=== PATIENT | male | born 1950 | race Caucasian/White ===

== ENCOUNTER 2025-08-12 16:32 | Emergency (ER) | payer MEDICARE ==
[~2025-08-12] VITALS: Ht 182.9 cm; Wt 97.2 kg
[2025-08-12 16:47] LABS: BASOPHILS 1.0 % (0.2-1.2); EOSINOPHILS 5.6 % (0.8-7.0); LYMPHOCYTES 24.2 % (21.8-53.1); MCH 29.1 PG (25.7-32.2); MCHC 34.4 g/dL (32.3-36.5); MCV 84.6 fL (79.0-92.2); MONOCYTES 8.2 % (5.3-12.2); NEUTROPHILS 60.5 % (34.0-67.9); RBC 4.81 M/uL (4.63-6.08)
[2025-08-12 16:58] LABS: INR 0.94 (0.80-1.30); PROTIME 12.2 Sec (11.2-14.2)
[2025-08-12 17:04] LABS: ALCOHOL, MEDICAL 3.0 ng/dL (<3); ALT (SGPT) 23.0 U/L (14-59); AST (SGOT) 30.0 U/L (15-37); GLOMERULAR FILTRATION RATE,EST 94.0 mL/min (>60); PROTEIN, TOTAL 6.8 g/dL (6.4-8.2); UREA NITROGEN 15.0 mg/dL (7-18)
[2025-08-12 17:25] LABS: ABO B; ANTIBODY SCREEN NEGATIVE; RH POSITIVE
[2025-08-12] MEDS ORDERED: DIPHTH,PERTUSS(ACELL),TET VAC 0.5 ML SYRINGE IM ONE (17:45)
[2025-08-12] MEDS ORDERED: LIDOCAINE/RACEPINEP/TETRACAINE 3 ML SYR TOP ONE (17:45)
[2025-08-12 17:48] LABS: BLOOD/HGB, URINE NEGATIVE (Negative); KETONE, URINE NEGATIVE (Negative); LEUK ESTERASE, URINE NEGATIVE (negative); NITRITE, URINE NEGATIVE (negative)
[2025-08-12] MEDS ORDERED: fentaNYL citrate 100 MCG/2 ML VIAL IV ONE (18:00)
[2025-08-12 18:09] LABS: AMPHETAMINES, URINE NEGATIVE (NEGATIVE); BARBITURATES, URINE NEGATIVE (NEGATIVE); BENZODIAZEPINE, URINE NEGATIVE (NEGATIVE); CANNABINOID, URINE NEGATIVE (NEGATIVE); COCAINE, URINE NEGATIVE (NEGATIVE); ECSTASY, URINE NEGATIVE (NEGATIVE); FENTANYL, URINE NEGATIVE (NEGATIVE); METHADONE, URINE NEGATIVE (NEGATIVE); OPIATES, URINE NEGATIVE (NEGATIVE); OXYCODONE, URINE NEGATIVE (NEGATIVE); PHENCYCLIDINE, URINE NEGATIVE (NEGATIVE)
[2025-08-12 18:15] VITALS: BP 190/84
== END 2025-08-12 18:39 | disposition short-term general hospital (02) ==
LOC: ED 16:32
PROVIDERS: Emergency Medicine
DX: S12.111A Posterior displaced Type II dens fracture, initial encounter for closed fracture (principal); I77.74 Dissection of vertebral artery; S01.01XA Laceration without foreign body of scalp, initial encounter; W55.12XA Struck by horse, initial encounter
CPT/HCPCS: 36415; 70450; 70486; 70496; 70498; 71260; 72125; 74177; 80053; 80307; 81003; 85025; 85610; 86850; 86900; 86901; 90471; 90715; 96374; 96375; 99285-25; A6590; G0480; J2405; J3010; Q9967